=== PATIENT | male | born 1955 | race Two or more races ===

== ENCOUNTER 2019-01-22 18:41 | Emergency (ER) | payer MEDICAID, OTHER ==
[~2019-01-22] VITALS: Ht 177.8 cm; Wt 81.6 kg
[2019-01-22 19:08] VITALS: BP 110/75
[2019-01-23] MEDS ORDERED: DIVA250T51 PO (10:18)
[2019-01-23] MEDS ORDERED: BUPR-40 PO (10:18)
[2019-01-23] MEDS ORDERED: SIMV-13 PO (10:18)
[2019-01-23] MEDS ORDERED: RISP0.5T12 PO (10:18)
[2019-01-23] MEDS ORDERED: LISI10TA6 PO (10:18)
[2019-01-23] MEDS ORDERED: TAMS1CAP25 PO (10:18)
== END 2019-01-22 20:01 | disposition left against medical advice (07) ==
LOC: EDBD → ER 18:45
DX: M79.672 Pain in left foot (principal); M79.671 Pain in right foot; Z48.01 Encounter for change or removal of surgical wound dressing; Z53.21 Procedure and treatment not carried out due to patient leaving prior to being seen by health care provider

== ENCOUNTER 2019-01-22 21:30 | Emergency (ER) | payer MEDICAID ==
[~2019-01-22] VITALS: Ht 170.2 cm; Wt 77.1 kg
[2019-01-23] LABS: Basophils # (auto) 0 uL; Basophils % (auto) 0.5 % (0.0-2.0); Eosinophils # (auto) 0.1 uL; Hematocrit 43.4 % (41.0-53.0); Hemoglobin 14.5 g/dL (13.5-17.5); Lymphocytes # (auto) 1.4 uL; Lymphocytes % (auto) 19.8 % (10.0-50.0); Mean Corpuscular Hemoglobin 30.7 pg (28.0-32.0); Mean Corpuscular Hgb Conc. 33.4 g/dL (32.0-36.0); Mean Corpuscular Volume 91.9 fL (80.0-100.0); Monocytes # (auto) 0.8 uL; Monocytes % (auto) 11.3 % (0.0-12.0); Neutrophils # (auto) 4.7 uL; Neutrophils % (auto) 67.4 % (37.0-80.0); Platelet Count (auto) 142 10^3/uL (140-450); Red Blood Cells 4.72 10^6/uL (4.5-5.90); White Blood Cell 6.9 10^3/uL (4.4-10.8)
[2019-01-23 00:19] LABS: Alanine Aminotransferase 50 U/L (16-61); Albumin 3.4 g/dL (3.4-5.0); Anion Gap 10 (5-15); Aspartate Aminotransferase 89 U/L (15-37); BUN/Creatinine Ratio 15.4; Blood Alcohol < 3.0 mg/dL (0-5); Blood Urea Nitrogen 14 mg/dL (7-18); Calcium 8.2 mg/dL (8.5-10.1); Carbon Dioxide 28 mmol/L (21-32); Chloride 101 mmol/L (98-107); GFR African American 109 mL/min; GFR Non-African American 90 mL/min; Glucose 78 mg/dL (74-106); Magnesium 1.8 mg/dL (1.6-2.6); Potassium 3.9 mmol/L (3.5-5.1); Sodium 139 mmol/L (136-145)
[2019-01-23 00:24] LABS: Alkaline Phosphatase 50 U/L (45-117); Bilirubin, Total 0.7 mg/dL (0.2-1.0); Total Protein 7.1 g/dL (6.4-8.2)
[2019-01-23] MEDS ORDERED: ACETAMINOPHEN 500 MG TAB PO ONE (03:00)
[2019-01-23] MEDS ORDERED: LISI10TA6 PO (10:18)
[2019-01-23] MEDS ORDERED: SIMV-13 PO (10:18)
[2019-01-23] MEDS ORDERED: BUPR-40 PO (10:18)
[2019-01-23] MEDS ORDERED: TAMS1CAP25 PO (10:18)
[2019-01-23] MEDS ORDERED: DIVA250T51 PO (10:18)
[2019-01-23] MEDS ORDERED: RISP0.5T12 PO (10:18)
[2019-01-23] MEDS: OLANZapine 5 MG TAB PO PRN ×2 (12:35→23:05)
[2019-01-23] MEDS: risperiDONE 1 MG TAB PO SCH (18:00)
[2019-01-23] MEDS: TAMSULOSIN HYDROCHLORIDE 0.4 MG CAP PO SCH (22:32)
[2019-01-23] MEDS: ATORVASTATIN 20 MG TAB PO SCH (22:32)
[2019-01-23] MEDS: buPROPion HCL 75 MG TAB PO SCH (22:32)
[2019-01-24] MEDS: LISINOPRIL 10 MG TAB PO SCH (10:00)
[2019-01-24] MEDS: buPROPion HCL 75 MG TAB PO SCH ×2 (10:40→22:00)
[2019-01-24] MEDS: OLANZapine 5 MG TAB PO PRN (13:00)
[2019-01-24] MEDS ORDERED: LORazepam 0.5 MG TAB ONE (14:45)
[2019-01-24] MEDS: LORazepam 0.5 MG TAB PO PRN (14:54)
[2019-01-24] MEDS ORDERED: diphenhdrAMINE HCL 50 MG/1 ML VL IM ONE (19:45)
[2019-01-24] MEDS ORDERED: LORazepam 2MG/ML-1ML VIAL IM ONE (19:45)
[2019-01-24] MEDS: risperiDONE 1 MG TAB PO SCH (21:16)
[2019-01-24] MEDS: TAMSULOSIN HYDROCHLORIDE 0.4 MG CAP PO SCH (22:00)
[2019-01-24] MEDS: ATORVASTATIN 20 MG TAB PO SCH (22:00)
[2019-01-25] MEDS ORDERED: TAMSULOSIN HYDROCHLORIDE 0.4 MG CAP PO ONE (05:30)
[2019-01-25] MEDS: OLANZapine 5 MG TAB PO PRN (07:42)
[2019-01-25] MEDS: LORazepam 0.5 MG TAB PO PRN (07:42)
[2019-01-25] MEDS: LISINOPRIL 10 MG TAB PO SCH (10:00)
[2019-01-25] MEDS: buPROPion HCL 75 MG TAB PO SCH ×2 (13:16→22:00)
[2019-01-25] MEDS ORDERED: HALOPERIDOL LACTATE 5 MG/ML INJ VIAL ONE (16:38)
[2019-01-25] MEDS ORDERED: LORazepam 2MG/ML-1ML VIAL ONE (16:38)
[2019-01-25] MEDS ORDERED: diphenhdrAMINE HCL 50 MG/1 ML VL ONE (16:38)
[2019-01-25] MEDS ORDERED: HALOPERIDOL LACTATE 5 MG/ML INJ VIAL IM ONE (16:45)
[2019-01-25] MEDS ORDERED: LORazepam 2MG/ML-1ML VIAL IV ONE (16:45)
[2019-01-25] MEDS ORDERED: diphenhdrAMINE HCL 50 MG/1 ML VL IV ONE (16:45)
[2019-01-25] MEDS: risperiDONE 1 MG TAB PO SCH (18:00)
[2019-01-25] MEDS: TAMSULOSIN HYDROCHLORIDE 0.4 MG CAP PO SCH (22:00)
[2019-01-25] MEDS: ATORVASTATIN 20 MG TAB PO SCH (22:00)
[2019-01-26] MEDS: LISINOPRIL 10 MG TAB PO SCH (10:00)
[2019-01-26] MEDS: buPROPion HCL 75 MG TAB PO SCH ×2 (10:09→22:00)
[2019-01-26] MEDS: risperiDONE 1 MG TAB PO SCH (18:29)
[2019-01-26] MEDS: ATORVASTATIN 20 MG TAB PO SCH (22:00)
[2019-01-26] MEDS: TAMSULOSIN HYDROCHLORIDE 0.4 MG CAP PO SCH (22:00)
[2019-01-26] MEDS: LORazepam 0.5 MG TAB PO PRN (22:48)
[2019-01-26 23:24] VITALS: BP 119/68
[2019-01-27] MEDS ORDERED: ONDANSETRON ODT 4 MG TAB PO ONE (04:15)
== END 2019-01-27 09:16 | disposition home or self-care (01) ==
LOC: EDBD 21:34 → ER 21:34
DX: F23 Brief psychotic disorder (principal); I10 Essential (primary) hypertension; F31.9 Bipolar disorder, unspecified; F17.210 Nicotine dependence, cigarettes, uncomplicated; Y08.89XA Assault by other specified means, initial encounter; Y93.89 Activity, other specified; Y99.8 Other external cause status; Y92.89 Other specified places as the place of occurrence of the external cause
CPT/HCPCS: 36415; 80053; 80320; 83735; 84484; 85025; 93005; 96372; 96374; 96375; 99285; Q0162

== ENCOUNTER 2019-01-31 11:31 | Emergency (ER) | payer MEDICAID ==
[~2019-01-31] VITALS: Ht 167.6 cm; Wt 77.1 kg
[~2019-01-31 11:31] MED LIST: BUPR-40 PO; DIVA250T51 PO; LISI10TA6 PO; RISP0.5T12 PO; SIMV-13 PO; TAMS1CAP25 PO
[2019-01-31 11:41] VITALS: BP 119/68
[2019-01-31] MEDS ORDERED: ACETAMINOPHEN 325 MG TAB PO ONE (12:00)
== END 2019-01-31 12:20 | disposition home or self-care (01) ==
LOC: EDBD 11:31 → ER 11:36
DX: R51 Headache (principal); M19.90 Unspecified osteoarthritis, unspecified site; I10 Essential (primary) hypertension; F17.210 Nicotine dependence, cigarettes, uncomplicated; F14.90 Cocaine use, unspecified, uncomplicated; F12.90 Cannabis use, unspecified, uncomplicated; F15.90 Other stimulant use, unspecified, uncomplicated

== ENCOUNTER 2019-02-01 08:58 | Emergency (ER) | payer MEDICAID ==
[~2019-02-01] VITALS: Ht 167.6 cm; Wt 77.1 kg
[2019-02-01] MEDS ORDERED: SODIUM CHLORIDE 0.9% 1,000 ML IV ONE (09:30)
[2019-02-01 09:34] LABS: Basophils # (auto) 0.1 uL; Basophils % (auto) 0.7 % (0.0-2.0); Eosinophils # (auto) 0.1 uL; Eosinophils % (auto) 1.2 % (0.0-7.0); Hematocrit 42.7 % (41.0-53.0); Hemoglobin 14.4 g/dL (13.5-17.5); Lymphocytes # (auto) 1.5 uL; Lymphocytes % (auto) 21.4 % (10.0-50.0); Mean Corpuscular Hemoglobin 30.9 pg (28.0-32.0); Mean Corpuscular Hgb Conc. 33.6 g/dL (32.0-36.0); Mean Corpuscular Volume 91.8 fL (80.0-100.0); Monocytes # (auto) 0.6 uL; Monocytes % (auto) 8.3 % (0.0-12.0); Neutrophils # (auto) 4.9 uL; Neutrophils % (auto) 68.4 % (37.0-80.0); Nucleated Red Blood Cells % 0.1 %; Platelet Count (auto) 184 10^3/uL (140-450); Red Blood Cells 4.65 10^6/uL (4.5-5.90); White Blood Cell 7.2 10^3/uL (4.4-10.8)
[2019-02-01 10:34] LABS: Alcohol, Urine < 3.0 mg/dL (0-5); Amphetamine Screen, Urine NEGATIVE (NEGATIVE); Barbiturate Scree,Urine NEGATIVE (NEGATIVE); Benzodiazephine Screen, Urine NEGATIVE (NEGATIVE); Cannabinoid Screen, Urine NEGATIVE (NEGATIVE); Cocaine Screen, Urine NEGATIVE (NEGATIVE); Opiate Scree,Urine NEGATIVE (NEGATIVE); Phencyclidine Screen, Urine NEGATIVE (NEGATIVE)
[2019-02-01 10:41] LABS: Urine Bacteria NONE SEEN /hpf (None Seen); Urine Blood Negative /uL (Negative); Urine Mucus FEW (None Seen); Urine Specific Gravity 1.034 (1.001-1.035); Urine WBC 1 /hpf (0 - 3)
[2019-02-01 11:57] LABS: Anion Gap 6 (5-15); Carbon Dioxide 28 mmol/L (21-32); Chloride 104 mmol/L (98-107); Potassium 3.2 mmol/L (3.5-5.1); Sodium 138 mmol/L (136-145)
[2019-02-01 11:58] LABS: Alanine Aminotransferase 96 U/L (16-61); Alkaline Phosphatase 42 U/L (45-117); Aspartate Aminotransferase 285 U/L (15-37); BUN/Creatinine Ratio 16.9; Bilirubin, Total 1.1 mg/dL (0.2-1.0); Blood Urea Nitrogen 13 mg/dL (7-18); Calcium 8.2 mg/dL (8.5-10.1); GFR African American 132 mL/min; GFR Non-African American 109 mL/min; Glucose 117 mg/dL (74-106)
[2019-02-01 11:59] LABS: Albumin 3.1 g/dL (3.4-5.0); Magnesium 1.9 mg/dL (1.6-2.6); Total Protein 6.9 g/dL (6.4-8.2)
[2019-02-01 12:00] VITALS: BP 94/53
== END 2019-02-01 13:04 | disposition home or self-care (01) ==
LOC: EDBD 08:58 → EDUNIT# 08:58 → ER 08:58
DX: G40.909 Epilepsy, unspecified, not intractable, without status epilepticus (principal)
CPT/HCPCS: 36415; 80053; 80164; 80307; 81001; 83735; 84484; 85025; 93005; 96360; 96361; 99284; J7030

== ENCOUNTER 2019-02-02 08:41 | Emergency (ER) | payer MEDICAID ==
[~2019-02-02] VITALS: Ht 172.7 cm; Wt 90.7 kg
[2019-02-02] MEDS ORDERED: TETANUS-DIPTH-ACEL PERTUSSIS 0.5ML SYRG IM ONE (10:00)
[2019-02-02 10:35] VITALS: BP 102/58
[2019-02-02 10:40] LABS: Urine Bacteria NONE SEEN /hpf (None Seen); Urine Blood Negative /uL (Negative); Urine Specific Gravity 1.024 (1.001-1.035); Urine WBC <1 /hpf (0 - 3)
[2019-02-02 10:54] LABS: Alcohol, Urine < 3.0 mg/dL (0-5); Amphetamine Screen, Urine NEGATIVE (NEGATIVE); Barbiturate Scree,Urine NEGATIVE (NEGATIVE); Benzodiazephine Screen, Urine NEGATIVE (NEGATIVE); Cannabinoid Screen, Urine NEGATIVE (NEGATIVE); Cocaine Screen, Urine NEGATIVE (NEGATIVE); Opiate Scree,Urine NEGATIVE (NEGATIVE); Phencyclidine Screen, Urine NEGATIVE (NEGATIVE)
== END 2019-02-02 11:33 | disposition left against medical advice (07) ==
LOC: ER 08:41
DX: S80.212A Abrasion, left knee, initial encounter (principal); G40.909 Epilepsy, unspecified, not intractable, without status epilepticus; F20.9 Schizophrenia, unspecified; M19.90 Unspecified osteoarthritis, unspecified site; F17.210 Nicotine dependence, cigarettes, uncomplicated; F14.90 Cocaine use, unspecified, uncomplicated; F15.90 Other stimulant use, unspecified, uncomplicated; F12.90 Cannabis use, unspecified, uncomplicated; I10 Essential (primary) hypertension; Z53.29 Procedure and treatment not carried out because of patient's decision for other reasons; X58.XXXA Exposure to other specified factors, initial encounter; Y93.89 Activity, other specified; Y99.8 Other external cause status; Y92.89 Other specified places as the place of occurrence of the external cause
CPT/HCPCS: 70450; 80307; 81001; 90471; 90715